=== PATIENT | male | born 2000 | race Caucasian/White ===

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

== ENCOUNTER 2020-04-12 15:48 | Outpatient (RCR) | payer OTHER, SELFPAY ==
[2020-04-12 17:01] LABS: Absolute Lymphocyte Count 1.34 X10^3/uL (0.83-4.51); Absolute Neutrophil Count 3.9 X10^3/uL (2.0-7.7); Basophil# 0.04 X10^3/uL; Basophil% 0.7 % (0-1); Eosinophil# 0.17 X10^3/uL; Eosinophils% 2.8 % (0-5); Hematocrit 47.3 % (40-54); Hemoglobin 16.4 g/dL (13.0-16.5); Lymphocyte # 1.34 X10^3/ul (4.0); Lymphocyte % 21.9 % (19-41); Mean Corp Hgb Conc 34.7 g/dL (32-36); Mean Corpuscular Hgb 30.3 pg (27.0-32.0); Mean Corpuscular Volume 87.3 fL (80-94); Mean Platelet Vol. 9.8 fl (6.2-12.0); Monocyte# 0.66 X10^3/uL; Monocyte% 10.8 % (0-10); NRBC Flagged by Analyzer 0 % (0-5); Neutrophil % 63.5 % (47-70); Platelet Count 167 K/mm3 (150-450); RBC Distribution Width CV 11.9 % (11.6-14.6); RBC Distribution Width SD 37.3 fl (35.1-43.9); Red Blood Count 5.42 M/mm3 (4.6-6.2); White Blood Count 6.1 K/mm3 (4.4-11.0)
== END 2020-04-12 18:00 | disposition home or self-care (01) ==
LOC: LAB 15:48
PROVIDERS: Family Provider Pediatrics; PCP Pediatrics
DX: D69.3 Immune thrombocytopenic purpura (principal)
CPT/HCPCS: 36415; 85025

== ENCOUNTER 2020-06-05 14:04 | Emergency (ER) | payer OTHER, SELFPAY ==
[2020-06-05 14:05] VITALS: BP 124/80; PULSE 93; RESP 14; TEMP 36.4; O2SAT 98; BMI 18.3
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
--- NOTE | 2020-06-05 14:11 | RAD_ITS ---
STUDY: X-RAY - PELVIS REASON FOR EXAM: Male, 20 years old. TECHNIQUE: One view of the pelvis was obtained. COMPARISON: None. FINDINGS: The bones of the pelvis are intact and located. SI joints and symphysis pubis are congruent. Hips are located. There is a highly comminuted proximal left femoral diaphyseal fracture. RAD/Pelvis 1 or 2 Views IMPRESSION: Intact pelvis. Proximal left femoral diaphyseal comminuted fracture. Electronically Signed: Renetta Atkins, at 15:54 EST Tel , Service support ,
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
--- NOTE | 2020-06-05 14:13 | CT_ITS ---
STUDY: CT CERVICAL SPINE WITHOUT CONTRAST REASON FOR EXAM: Male, 20 years old. Trauma evaluation for fracture RADIATION DOSAGE (If Supplied By Facility): CTDIvol = ( 19.16 ) mGy, DLP = ( 400.65 ) mGycm TECHNIQUE: High resolution transaxial imaging was performed without contrast material. Sagittal and coronal images were reconstructed. Individualized dose optimization techniques were used for this CT. COMPARISON: None FINDINGS: Craniocervical junction and cervical spine are intact and aligned. Mineralization is normal. Paraspinous soft tissues are normal. Spinal canal is patent at all levels. Neural foramina are patent. CT/Spine Cervical without Contras IMPRESSION: 1. Unremarkable cervical spine. No acute osseous injury. Electronically Signed: Renetta Atkins, at 15:13 EST Tel , Service support ,
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
[2020-06-05] MEDS: 0.9% Normal Saline 1,000 ML 999 ML IV (14:16)
[2020-06-05] MEDS: Morphine 4 MG/ML Syringe IV ×3 (14:16→17:52)
[2020-06-05] MEDS: Ondansetron 4 MG/2 ML Vial IV (14:17)
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
[2020-06-05 14:25] LABS: Absolute Lymphocyte Count 1.19 X10^3/uL (0.83-4.51); Basophil# 0.03 X10^3/uL; Basophil% 0.2 % (0-1); Eosinophil# 0.11 X10^3/uL; Eosinophils% 0.8 % (0-5); Hematocrit 47.8 % (40-54); Hemoglobin 16.5 g/dL (13.0-16.5); Lymphocyte # 1.19 X10^3/ul (4.0); Mean Corp Hgb Conc 34.5 g/dL (32-36); Mean Corpuscular Hgb 29.7 pg (27.0-32.0); Mean Corpuscular Volume 86.1 fL (80-94); Mean Platelet Vol. 9.2 fl (6.2-12.0); Monocyte# 0.75 X10^3/uL; Monocyte% 5.7 % (0-10); NRBC Flagged by Analyzer 0 % (0-5); Neutrophil # 11.03 X10^3/uL (2.7-7.7); Neutrophil % 83.2 % (47-70); Platelet Count 153 K/mm3 (150-450); RBC Distribution Width CV 12.1 % (11.6-14.6); RBC Distribution Width SD 38.1 fl (35.1-43.9); Red Blood Count 5.55 M/mm3 (4.6-6.2); White Blood Count 13.3 K/mm3 (4.4-11.0)
--- NOTE | 2020-06-05 14:30 | CM.ED ---
Social Work Met with patient in room. Patient provided verbal permission for this social and human services assistant to speak with patient mother. This social and human services assistant met with patient mother in waiting room and provided support. Patient mother responding appropriately. Will continue to follow as needed. Scotty VERDUGO, RAFAEL
[2020-06-05 14:50] LABS: Anion Gap 5 (5-15); BUN 16 mg/dL (7-18); BUN/Creat Ratio 17.1 RATIO (10-20); Calcium,Total 8.4 mg/dL (8.5-10.1); Chloride 110 mmol/L (98-107); Creatinine, Serum 0.94 mg/dL (0.70-1.30); EST Glomerular Filtration Rate 109 mL/min (>60); Est Glom Filt Rate - Afr Amer 132 mL/min (>60); Estimated Creatinine Clearance 106.16 ml/min; Glucose 110 mg/dL (74-106); Potassium 3.9 mmol/L (3.5-5.1); Sodium Level 140 mmol/L (136-145)
[2020-06-05 15:14] LABS: International Normalized Ratio 1.1
[2020-06-05 15:15] LABS: Partial Thromboplast Time 27.9 Seconds (24.1-36.2)
[2020-06-05 15:40] VITALS: BP 100/60; PULSE 107; RESP 16; O2SAT 100
--- NOTE | 2020-06-05 16:10 | CM.ED ---
Social Work Patient to be transferred. Support provided to patient and patient mother. Scotty Maldonado MSW, RAFAEL
[2020-06-05 16:19] VITALS: BP 102/74; PULSE 101; RESP 14; TEMP 36.2; O2SAT 100
[2020-06-05] MEDS: Morphine 2 MG/ML Syringe IV ×2 (16:33→18:33)
[2020-06-05 18:26] VITALS: BP 118/56; PULSE 117; RESP 17; O2SAT 98
== END 2020-06-05 18:41 | disposition short-term general hospital (02) ==
LOC: ED 14:20
PROVIDERS: Emergency Provider Emergency Medicine; PCP Pediatrics
DX: S72.22XA Displaced subtrochanteric fracture of left femur, initial encounter for closed fracture (principal); M48.56XA Collapsed vertebra, not elsewhere classified, lumbar region, initial encounter for fracture; Y93.23 Activity, snow (alpine) (downhill) skiing, snowboarding, sledding, tobogganing and snow tubing
CPT/HCPCS: 71045; 72100; 72125; 72170; 73552; 80048; 85025; 85610; 85730; 96361; 96374; 96375; 96376; 99285; A4216; J2405

== ENCOUNTER → 2020-12-24 12:19 | Outpatient (CLI) | payer OTHER, MEDICAID, SELFPAY ==
[2020-12-24 13:35] LABS: Absolute Lymphocyte Count 0.61 X10^3/uL (0.83-4.51); Absolute Neutrophil Count 0.3 X10^3/uL (2.0-7.7); Basophil# 0.02 X10^3/uL; Eosinophil# 0.03 X10^3/uL; Eosinophils% 1.5 % (0-5); Hematocrit 46.2 % (40-54); Hemoglobin 16.2 g/dL (13.0-16.5); Lymphocyte # 0.61 X10^3/ul (0.83-4.51); Lymphocyte % 30.8 % (19-41); Mean Corp Hgb Conc 35.1 g/dL (32-36); Mean Corpuscular Hgb 30.2 pg (27.0-32.0); Mean Platelet Vol. 9.1 fl (6.2-12.0); Monocyte# 1.06 X10^3/uL; Monocyte% 53.5 % (0-10); NRBC Flagged by Analyzer 0 % (0-5); Neutrophil # 0.25 X10^3/uL (2.7-7.7); Neutrophil % 12.7 % (47-70); POSITIVE DIFFERENTIAL YES; Platelet Count 153 K/mm3 (150-450); RBC Distribution Width CV 11.8 % (11.6-14.6); RBC Distribution Width SD 36.7 fl (35.1-43.9); Red Blood Count 5.37 M/mm3 (4.6-6.2)
[2020-12-24 13:39] LABS: Differential Indicated SCAN CRITERIA MET
== END ==
PROVIDERS: PCP Pediatrics
DX: D69.3 Immune thrombocytopenic purpura (principal)
CPT/HCPCS: 36415; 85025

== ENCOUNTER → 2020-12-30 11:43 | Outpatient (CLI) | payer OTHER, MEDICAID, SELFPAY ==
[2020-12-30 12:41] LABS: Absolute Lymphocyte Count 0.79 X10^3/uL (0.83-4.51); Absolute Neutrophil Count 1.1 X10^3/uL (2.0-7.7); Basophil# 0.02 X10^3/uL; Basophil% 0.7 % (0-1); Eosinophil# 0.07 X10^3/uL; Eosinophils% 2.6 % (0-5); Hematocrit 43.4 % (40-54); Hemoglobin 15.1 g/dL (13.0-16.5); Lymphocyte # 0.79 X10^3/ul (0.83-4.51); Lymphocyte % 29.2 % (19-41); Mean Corp Hgb Conc 34.8 g/dL (32-36); Mean Corpuscular Hgb 29.3 pg (27.0-32.0); Mean Corpuscular Volume 84.1 fL (80-94); Mean Platelet Vol. 8.8 fl (6.2-12.0); Monocyte% 25.8 % (0-10); NRBC Flagged by Analyzer 0 % (0-5); Neutrophil # 1.12 X10^3/uL (2.7-7.7); Neutrophil % 41.3 % (47-70); Platelet Count 195 K/mm3 (150-450); RBC Distribution Width CV 11.6 % (11.6-14.6); Red Blood Count 5.16 M/mm3 (4.6-6.2); White Blood Count 2.7 K/mm3 (4.4-11.0)
== END ==
PROVIDERS: PCP Pediatrics
DX: D69.6 Thrombocytopenia, unspecified (principal)
CPT/HCPCS: 36415; 85025

== ENCOUNTER → 2021-01-11 15:35 | Outpatient (CLI) | payer OTHER, MEDICAID, SELFPAY ==
[2021-01-11 17:10] LABS: Hematocrit 40.8 % (40-54); Mean Corp Hgb Conc 34.3 g/dL (32-36); Mean Corpuscular Hgb 29.8 pg (27.0-32.0); Mean Corpuscular Volume 86.8 fL (80-94); Mean Platelet Vol. 9.5 fl (6.2-12.0); Platelet Count 128 K/mm3 (150-450); RBC Distribution Width CV 12.9 % (11.6-14.6); RBC Distribution Width SD 39.8 fl (35.1-43.9); White Blood Count 2.6 K/mm3 (4.4-11.0)
[2021-01-12 09:18] LABS: Absolute Lymphocyte Count 0.91 X10^3/uL (0.83-4.51); Basophil# 0.04 X10^3/uL; Basophil% 1.5 % (0-1); Eosinophil# 0.09 X10^3/uL; Eosinophils% 3.4 % (0-5); Lymphocyte # 0.91 X10^3/ul (0.83-4.51); Lymphocyte % 34.3 % (19-41); Monocyte# 0.56 X10^3/uL; Monocyte% 21.1 % (0-10); NRBC Flagged by Analyzer 0 % (0-5); Neutrophil # 1.04 X10^3/uL (2.7-7.7); Neutrophil % 39.3 % (47-70)
== END ==
PROVIDERS: PCP Pediatrics
DX: D70.3 Neutropenia due to infection (principal)
CPT/HCPCS: 36415; 85025; 85027

== ENCOUNTER 2021-02-01 17:05 | Outpatient (RCR) | payer OTHER, MEDICAID, SELFPAY ==
[2021-02-01 17:28] LABS: Absolute Lymphocyte Count 1.01 X10^3/uL (0.83-4.51); Absolute Neutrophil Count 3.3 X10^3/uL (2.0-7.7); Basophil# 0.03 X10^3/uL; Basophil% 0.6 % (0-1); Eosinophil# 0.19 X10^3/uL; Eosinophils% 3.9 % (0-5); Hematocrit 43.5 % (40-54); Hemoglobin 15.3 g/dL (13.0-16.5); Lymphocyte # 1.01 X10^3/ul (0.83-4.51); Lymphocyte % 20.7 % (19-41); Mean Corp Hgb Conc 35.2 g/dL (32-36); Mean Corpuscular Hgb 30.7 pg (27.0-32.0); Mean Corpuscular Volume 87.2 fL (80-94); Mean Platelet Vol. 9.9 fl (6.2-12.0); Monocyte# 0.34 X10^3/uL; NRBC Flagged by Analyzer 0 % (0-5); Neutrophil # 3.31 X10^3/uL (2.7-7.7); Neutrophil % 67.6 % (47-70); POSITIVE COUNT YES; Platelet Count 90 K/mm3 (150-450); RBC Distribution Width CV 12.7 % (11.6-14.6); RBC Distribution Width SD 40.9 fl (35.1-43.9); Red Blood Count 4.99 M/mm3 (4.6-6.2); White Blood Count 4.9 K/mm3 (4.4-11.0)
[2021-02-01 18:06] LABS: Differential Indicated SCAN CRITERIA MET
[2021-02-01 18:10] LABS: Platelet Estimate MOD DEC (ADEQ)
[2021-02-01 18:11] LABS: Red Cell Morphology NORM C+C NORMAL (NORM C&C)
== END 2021-02-01 18:00 | disposition home or self-care (01) ==
LOC: LAB 17:05
PROVIDERS: Family Provider Pediatrics; PCP Pediatrics
DX: D69.3 Immune thrombocytopenic purpura (principal)
CPT/HCPCS: 36415; 85025

== ENCOUNTER 2021-02-16 16:26 | Outpatient (RCR) | payer OTHER, MEDICAID, SELFPAY ==
[2021-02-08 23:18] VITALS: BMI 19.1
[2021-02-16 16:43] LABS: Absolute Lymphocyte Count 1.18 X10^3/uL (0.83-4.51); Absolute Neutrophil Count 3.5 X10^3/uL (2.0-7.7); Basophil# 0.03 X10^3/uL; Basophil% 0.6 % (0-1); Eosinophil# 0.17 X10^3/uL; Eosinophils% 3.1 % (0-5); Hematocrit 44.5 % (40-54); Hemoglobin 15.7 g/dL (13.0-16.5); Lymphocyte # 1.18 X10^3/ul (0.83-4.51); Lymphocyte % 21.7 % (19-41); Mean Corp Hgb Conc 35.3 g/dL (32-36); Mean Corpuscular Hgb 30.3 pg (27.0-32.0); Mean Corpuscular Volume 85.7 fL (80-94); Mean Platelet Vol. 9.3 fl (6.2-12.0); Monocyte# 0.56 X10^3/uL; Monocyte% 10.3 % (0-10); NRBC Flagged by Analyzer 0 % (0-5); Neutrophil # 3.48 X10^3/uL (2.7-7.7); Neutrophil % 64.1 % (47-70); Platelet Count 110 K/mm3 (150-450); RBC Distribution Width CV 11.9 % (11.6-14.6); RBC Distribution Width SD 37.2 fl (35.1-43.9); Red Blood Count 5.19 M/mm3 (4.6-6.2); White Blood Count 5.4 K/mm3 (4.4-11.0)
== END 2021-02-16 18:00 | disposition home or self-care (01) ==
LOC: LAB 16:26
PROVIDERS: Family Provider Pediatrics; PCP Pediatrics
DX: D70.9 Neutropenia, unspecified (principal)
CPT/HCPCS: 36415; 85025

== ENCOUNTER 2021-08-17 15:25 | Outpatient (RCR) | payer OTHER, MEDICAID, SELFPAY ==
[2021-03-10 20:30] VITALS: BMI 19.1
[2021-08-17 16:06] LABS: Hematocrit 42.4 % (40-54); Hemoglobin 15.4 g/dL (13.0-16.5); Mean Corp Hgb Conc 36.3 g/dL (32-36); Mean Corpuscular Hgb 31.3 pg (27.0-32.0); Mean Corpuscular Volume 86.2 fL (80-94); Mean Platelet Vol. 9.7 fl (6.2-12.0); Platelet Count 125 K/mm3 (150-450); RBC Distribution Width CV 12.1 % (11.6-14.6); Red Blood Count 4.92 M/mm3 (4.6-6.2); White Blood Count 4.4 K/mm3 (4.4-11.0)
[2021-08-18 09:14] LABS: Absolute Lymphocyte Count 1.02 X10^3/uL (0.83-4.51); Absolute Neutrophil Count 2.8 X10^3/uL (2.0-7.7); Basophil# 0.03 X10^3/uL; Basophil% 0.7 % (0-1); Eosinophil# 0.16 X10^3/uL; Eosinophils% 3.6 % (0-5); Lymphocyte # 1.02 X10^3/ul (0.83-4.51); Lymphocyte % 22.7 % (19-41); Monocyte# 0.51 X10^3/uL; Monocyte% 11.3 % (0-10); NRBC Flagged by Analyzer 0 % (0-5); Neutrophil # 2.77 X10^3/uL (2.7-7.7); Neutrophil % 61.5 % (47-70)
== END 2021-09-08 18:00 | disposition home or self-care (01) ==
LOC: LAB 15:25
PROVIDERS: Family Provider Pediatrics; PCP Pediatrics
DX: D70.9 Neutropenia, unspecified (principal)
CPT/HCPCS: 36415; 85025; 85027

== ENCOUNTER 2021-11-11 14:19 | Outpatient (RCR) | payer OTHER, MEDICAID, SELFPAY ==
[2021-09-09 02:22] VITALS: BMI 19.1
[2021-11-11 15:30] LABS: Absolute Lymphocyte Count 0.97 X10^3/uL (0.83-4.51); Absolute Neutrophil Count 3.1 X10^3/uL (2.0-7.7); Basophil# 0.02 X10^3/uL; Basophil% 0.4 % (0-1); Eosinophil# 0.27 X10^3/uL; Eosinophils% 5.5 % (0-5); Hematocrit 45.2 % (40-54); Hemoglobin 15.8 g/dL (13.0-16.5); Lymphocyte # 0.97 X10^3/ul (0.83-4.51); Lymphocyte % 19.8 % (19-41); Mean Corpuscular Hgb 30.2 pg (27.0-32.0); Mean Corpuscular Volume 86.4 fL (80-94); Mean Platelet Vol. 9.7 fl (6.2-12.0); Monocyte# 0.53 X10^3/uL; Monocyte% 10.8 % (0-10); NRBC Flagged by Analyzer 0 % (0-5); Neutrophil # 3.08 X10^3/uL (2.7-7.7); Neutrophil % 62.7 % (47-70); Platelet Count 125 K/mm3 (150-450); RBC Distribution Width CV 11.9 % (11.6-14.6); RBC Distribution Width SD 37.4 fl (35.1-43.9); Red Blood Count 5.23 M/mm3 (4.6-6.2); White Blood Count 4.9 K/mm3 (4.4-11.0)
== END 2021-11-11 23:59 | disposition home or self-care (01) ==
LOC: LAB 14:19
PROVIDERS: Family Provider Pediatrics; PCP Pediatrics
DX: D70.9 Neutropenia, unspecified (principal)
CPT/HCPCS: 36415; 85025

== ENCOUNTER 2022-01-03 14:21 | Outpatient (RCR) | payer OTHER, MEDICAID, SELFPAY ==
[2021-12-09 07:00] VITALS: BMI 19.1
[2022-01-03 15:13] LABS: Absolute Lymphocyte Count 0.95 X10^3/uL (0.83-4.51); Absolute Neutrophil Count 2.2 X10^3/uL (2.0-7.7); Basophil# 0.02 X10^3/uL; Basophil% 0.5 % (0-1); Eosinophils% 5.2 % (0-5); Hematocrit 41.8 % (40-54); Lymphocyte # 0.95 X10^3/ul (0.83-4.51); Lymphocyte % 24.7 % (19-41); Mean Corp Hgb Conc 35.9 g/dL (32-36); Mean Corpuscular Hgb 30.9 pg (27.0-32.0); Mean Platelet Vol. 9.6 fl (6.2-12.0); Monocyte# 0.43 X10^3/uL; Monocyte% 11.2 % (0-10); NRBC Flagged by Analyzer 0 % (0-5); Neutrophil # 2.24 X10^3/uL (2.7-7.7); Neutrophil % 58.4 % (47-70); Platelet Count 106 K/mm3 (150-450); RBC Distribution Width CV 12.2 % (11.6-14.6); RBC Distribution Width SD 38.3 fl (35.1-43.9); Red Blood Count 4.86 M/mm3 (4.6-6.2); White Blood Count 3.8 K/mm3 (4.4-11.0)
== END 2022-01-08 02:21 | disposition home or self-care (01) ==
LOC: LAB 14:21
PROVIDERS: Family Provider Pediatrics; PCP Pediatrics
DX: D70.9 Neutropenia, unspecified (principal)
CPT/HCPCS: 36415; 85025

== ENCOUNTER 2022-03-17 15:07 | Outpatient (RCR) | payer OTHER, MEDICAID, SELFPAY ==
[2022-01-08 02:21] VITALS: BMI 19.1
[2022-03-17 16:00] LABS: Absolute Neutrophil Count 3.7 X10^3/uL (2.0-7.7); Basophil# 0.02 X10^3/uL; Basophil% 0.4 % (0-1); Eosinophil# 0.22 X10^3/uL; Eosinophils% 3.9 % (0-5); Hemoglobin 15.7 g/dL (13.0-16.5); Lymphocyte % 21.4 % (19-41); Mean Corp Hgb Conc 34.9 g/dL (32-36); Mean Corpuscular Hgb 30.3 pg (27.0-32.0); Mean Corpuscular Volume 86.7 fL (80-94); Mean Platelet Vol. 9.7 fl (6.2-12.0); Monocyte# 0.48 X10^3/uL; Monocyte% 8.6 % (0-10); NRBC Flagged by Analyzer 0 % (0-5); Neutrophil # 3.66 X10^3/uL (2.7-7.7); Neutrophil % 65.3 % (47-70); Platelet Count 116 K/mm3 (150-450); RBC Distribution Width SD 37.9 fl (35.1-43.9); Red Blood Count 5.19 M/mm3 (4.6-6.2); White Blood Count 5.6 K/mm3 (4.4-11.0)
== END 2022-03-17 18:00 | disposition home or self-care (01) ==
LOC: LAB 15:07
PROVIDERS: Family Provider Pediatrics; PCP Pediatrics
DX: D70.9 Neutropenia, unspecified (principal)
CPT/HCPCS: 36415; 85025

== ENCOUNTER 2022-11-02 15:24 | Outpatient (RCR) | payer OTHER, MEDICAID, SELFPAY ==
[2022-10-17 16:47] LABS: Absolute Lymphocyte Count 1.09 X10^3/uL (0.83-4.51); Absolute Neutrophil Count 3.3 X10^3/uL (2.0-7.7); Basophil# 0.03 X10^3/uL; Basophil% 0.6 % (0-1); Eosinophil# 0.18 X10^3/uL; Eosinophils% 3.5 % (0-5); Hemoglobin 15.7 g/dL (13.0-16.5); Lymphocyte # 1.09 X10^3/ul (0.83-4.51); Lymphocyte % 21.4 % (19-41); Mean Corp Hgb Conc 35.7 g/dL (32-36); Mean Corpuscular Hgb 30.7 pg (27.0-32.0); Mean Corpuscular Volume 86.1 fL (80-94); Mean Platelet Vol. 10.5 fl (6.2-12.0); Monocyte# 0.48 X10^3/uL; Monocyte% 9.4 % (0-10); NRBC Flagged by Analyzer 0 % (0-5); Neutrophil % 64.9 % (47-70); POSITIVE COUNT YES; Platelet Count 51 K/mm3 (150-450); RBC Distribution Width CV 12.3 % (11.6-14.6); RBC Distribution Width SD 38.4 fl (35.1-43.9); Red Blood Count 5.11 M/mm3 (4.6-6.2); White Blood Count 5.1 K/mm3 (4.4-11.0)
[2022-10-17 16:54] LABS: Differential Indicated SCAN CRITERIA MET
[2022-10-17 17:25] LABS: Differential Comment SCANNED
[2022-11-02 16:21] LABS: Absolute Lymphocyte Count 1.14 X10^3/uL (0.83-4.51); Absolute Neutrophil Count 2.8 X10^3/uL (2.0-7.7); Basophil# 0.04 X10^3/uL; Basophil% 0.8 % (0-1); Eosinophil# 0.31 X10^3/uL; Eosinophils% 6.4 % (0-5); Hematocrit 43.4 % (40-54); Hemoglobin 14.9 g/dL (13.0-16.5); Lymphocyte # 1.14 X10^3/ul (0.83-4.51); Lymphocyte % 23.4 % (19-41); Mean Corp Hgb Conc 34.3 g/dL (32-36); Mean Corpuscular Hgb 29.9 pg (27.0-32.0); Mean Corpuscular Volume 87.1 fL (80-94); Mean Platelet Vol. 9.8 fl (6.2-12.0); Monocyte# 0.56 X10^3/uL; Monocyte% 11.5 % (0-10); NRBC Flagged by Analyzer 0 % (0-5); Neutrophil # 2.81 X10^3/uL (2.7-7.7); Neutrophil % 57.7 % (47-70); Platelet Count 106 K/mm3 (150-450); RBC Distribution Width CV 12.5 % (11.6-14.6); RBC Distribution Width SD 39.2 fl (35.1-43.9); Red Blood Count 4.98 M/mm3 (4.6-6.2); White Blood Count 4.9 K/mm3 (4.4-11.0)
== END 2022-11-08 18:00 | disposition home or self-care (01) ==
LOC: LAB 15:24
PROVIDERS: PCP Pediatrics
DX: D69.3 Immune thrombocytopenic purpura (principal)
CPT/HCPCS: 36415; 85025

== ENCOUNTER 2023-01-10 16:01 | Outpatient (RCR) | payer OTHER, MEDICAID, SELFPAY ==
[2023-01-10 16:24] LABS: Hematocrit 46.2 % (40-54); Mean Corp Hgb Conc 34.6 g/dL (32-36); Mean Corpuscular Hgb 30.3 pg (27.0-32.0); Mean Corpuscular Volume 87.5 fL (80-94); Mean Platelet Vol. 9.5 fl (6.2-12.0); Platelet Count 137 K/mm3 (150-450); RBC Distribution Width SD 38.5 fl (35.1-43.9); Red Blood Count 5.28 M/mm3 (4.6-6.2)
== END 2023-01-10 18:00 | disposition home or self-care (01) ==
LOC: LAB 16:01
PROVIDERS: PCP Pediatrics
DX: D69.3 Immune thrombocytopenic purpura
CPT/HCPCS: 36415; 85027

== ENCOUNTER → 2023-05-16 | Outpatient (CLI) | payer OTHER, MEDICAID, SELFPAY ==
[2023-05-16 12:33] LABS: Absolute Lymphocyte Count 1.05 X10^3/uL (0.83-4.51); Absolute Neutrophil Count 3.5 X10^3/uL (2.0-7.7); Basophil# 0.02 X10^3/uL; Basophil% 0.4 % (0-1); Eosinophil# 0.12 X10^3/uL; Eosinophils% 2.3 % (0-5); Hematocrit 46.4 % (40-54); Hemoglobin 16.3 g/dL (13.0-16.5); Lymphocyte # 1.05 X10^3/ul (0.83-4.51); Lymphocyte % 20.4 % (19-41); Mean Corp Hgb Conc 35.1 g/dL (32-36); Mean Corpuscular Volume 85.3 fL (80-94); Monocyte# 0.39 X10^3/uL; Monocyte% 7.6 % (0-10); NRBC Flagged by Analyzer 0 % (0-5); Neutrophil # 3.54 X10^3/uL (2.7-7.7); Neutrophil % 68.9 % (47-70); Platelet Count 160 K/mm3 (150-450); RBC Distribution Width CV 12.5 % (11.6-14.6); RBC Distribution Width SD 37.5 fl (35.1-43.9); Red Blood Count 5.44 M/mm3 (4.6-6.2); White Blood Count 5.1 K/mm3 (4.4-11.0)
== END | disposition home or self-care (01) ==
PROVIDERS: PCP Pediatrics; Referring Provider Otolaryngology; Visit Provider Otolaryngology
DX: R53.83 Other fatigue (principal)
CPT/HCPCS: 36415; 85025

== ENCOUNTER → 2024-09-17 | Outpatient (CLI) | payer OTHER, SELFPAY ==
[2024-09-17 16:51] LABS: Absolute Lymphocyte Count 0.65 X10^3/uL (0.83-4.51); Absolute Neutrophil Count 0.2 X10^3/uL (2.0-7.7); Basophil# 0.02 X10^3/uL; Basophil% 1.5 % (0-1); Eosinophil# 0.05 X10^3/uL; Eosinophils% 3.7 % (0-5); Hemoglobin 14.7 g/dL (13.0-16.5); Lymphocyte # 0.65 X10^3/ul (0.83-4.51); Lymphocyte % 47.8 % (19-41); Mean Corp Hgb Conc 35.9 g/dL (32-36); Mean Corpuscular Hgb 30.5 pg (27.0-32.0); Mean Corpuscular Volume 85.1 fL (80-94); Mean Platelet Vol. 10.4 fl (6.2-12.0); Monocyte# 0.47 X10^3/uL; Monocyte% 34.6 % (0-10); NRBC Flagged by Analyzer 0 % (0-5); Neutrophil # 0.17 X10^3/uL (2.7-7.7); Neutrophil % 12.4 % (47-70); POSITIVE COUNT YES; POSITIVE DIFFERENTIAL YES; POSITIVE MORPHOLOGY YES; Platelet Count 53 K/mm3 (150-450); RBC Distribution Width CV 13.6 % (11.6-14.6); RBC Distribution Width SD 41.1 fl (35.1-43.9); Red Blood Count 4.82 M/mm3 (4.6-6.2)
[2024-09-17 17:05] LABS: White Blood Count 1.4 K/mm3 (4.4-11.0)
[2024-09-17 17:17] LABS: Hemoglobin A1c 4.2 % (<=5.6)
[2024-09-17 17:25] LABS: Cholesterol 148 mg/dL (<=190); High Density Lipoprotein 29 mg/dL; Low Density Lipoprotein Calc. 75 mg/dL; Triglycerides 221 mg/dL; Very Low Density Lipoprotein 44 mg/dL (5-40); cholesterol:hdl ratio screen 5.07
[2024-09-17 17:40] LABS: ALB/GLOB Ratio 2.4 RATIO (0.9-2.4); AST(SGOT) 34 U/L (<=37); Alanine Aminotransfer ALT/SGPT 47 U/L (<=46); Albumin, Serum 4.8 g/dL (3.5-5.0); Alkaline Phosphatase 122 U/L (40-129); Anion Gap 11 (5-15); BUN 10 mg/dL (4-19); BUN/Creat Ratio 11.4 RATIO (10-20); Calcium,Total 9.5 mg/dL (7.6-11.0); Carbon Dioxide 24.7 mmol/L (21.0-32.0); Chloride 103 mmol/L (98-108); Creatinine, Serum 0.87 mg/dL (0.70-1.20); EST Glomerular Filtration Rate 123 (>60); Glucose 97 mg/dL (70-99); Protein, Total 6.7 g/dL (5.9-8.4); Sodium Level 138 mmol/L (133-145); Total Bilirubin 1.24 mg/dL (0.00-1.30)
[2024-09-17 18:09] LABS: Macrocytosis 1+; Pathologist Review May foll; Platelet Estimate MOD DEC (ADEQ); Polychromasia 1+
== END | disposition home or self-care (01) ==
LOC: LAB 16:19
PROVIDERS: PCP Pediatrics; Referring Provider Nurse Practitioner Family; Visit Provider Nurse Practitioner Family
DX: Z00.00 Encounter for general adult medical examination without abnormal findings (principal)
CPT/HCPCS: 36415; 80053; 80061; 83036; 84439; 84443; 85025

== ENCOUNTER → 2024-09-26 | Outpatient (CLI) | payer OTHER, SELFPAY ==
[2024-09-26 10:42] LABS: Absolute Lymphocyte Count 0.76 X10^3/uL (0.83-4.51); Absolute Neutrophil Count 0.8 X10^3/uL (2.0-7.7); Basophil# 0.03 X10^3/uL; Basophil% 1.3 % (0-1); Eosinophil# 0.12 X10^3/uL; Eosinophils% 5.3 % (0-5); Hematocrit 41.9 % (40-54); Hemoglobin 14.9 g/dL (13.0-16.5); Lymphocyte # 0.76 X10^3/ul (0.83-4.51); Lymphocyte % 33.8 % (19-41); Mean Corp Hgb Conc 35.6 g/dL (32-36); Mean Corpuscular Volume 84.5 fL (80-94); Mean Platelet Vol. 9.9 fl (6.2-12.0); Monocyte# 0.58 X10^3/uL; Monocyte% 25.8 % (0-10); NRBC Flagged by Analyzer 0 % (0-5); Neutrophil # 0.75 X10^3/uL (2.7-7.7); Neutrophil % 33.4 % (47-70); POSITIVE COUNT YES; POSITIVE DIFFERENTIAL YES; Platelet Count 96 K/mm3 (150-450); RBC Distribution Width CV 13.3 % (11.6-14.6); RBC Distribution Width SD 41.1 fl (35.1-43.9); Red Blood Count 4.96 M/mm3 (4.6-6.2); White Blood Count 2.3 K/mm3 (4.4-11.0)
[2024-09-26 10:43] LABS: Differential Indicated SCAN CRITERIA MET
[2024-09-26 11:21] LABS: Differential Comment SCANNED; Platelet Estimate MOD DEC (ADEQ)
== END | disposition home or self-care (01) ==
LOC: LAB 09:44
PROVIDERS: PCP Nurse Practitioner Family; Referring Provider Nurse Practitioner Family; Visit Provider Nurse Practitioner Family
DX: D72.819 Decreased white blood cell count, unspecified (principal)
CPT/HCPCS: 36415; 85025